=== PATIENT | female | born 1965 | race Caucasian/White ===

== ENCOUNTER 2024-12-02 16:32 | Emergency (ER) | payer MEDICAID, SELFPAY ==
--- NOTE | 2024-12-02 17:07 | EKG_ITS ---
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
[2024-12-02 17:14] VITALS: BP 135/85; PULSE 97; RESP 18; TEMP 36.7; O2SAT 95; BMI 29.9
[2024-12-02 18:10] VITALS: BP 125/86; PULSE 87; RESP 18; TEMP 36.9; O2SAT 95
[2024-12-02 18:14] VITALS: BP 101/66; PULSE 74; RESP 17; TEMP 37.1; O2SAT 98
--- NOTE | 2024-12-02 18:41 | XR_ITS ---
Examination: PA chest single view TECHNIQUE: Upright PA chest single view Exam date: December 02, 2024 at 1851 hours INDICATIONS: Chest pain 1 week. FINDINGS: Significant pneumonia left base Normal heart size Right lung clear IMPRESSION: Significant pneumonia left base
--- NOTE | 2024-12-02 18:41 | PD.EDRME ---
Rapid Medical Screening Exam RME Arrival date/time: 12/02/24 16:32 59F with history of smoking cigarettes/marijuana presents to ED with 2 weeks of increased SOB and fatigue. Today, it became more CP than SOB. Chief Complaint: Chest Pain Time Seen by Provider: 12/02/24 17:37 Vital signs: Vital Signs Temperature 98.1 F 12/02/24 17:14 Pulse Rate 97 12/02/24 17:14 Respiratory Rate 18 12/02/24 17:14 Blood Pressure 135/85 H 12/02/24 17:14 Pulse Oximetry (%) 95 12/02/24 17:14 Oxygen Delivery Method Room Air 12/02/24 17:14
[2024-12-02 19:10] LABS: Collection Type, Urine Clean Catch
[2024-12-02 19:15] LABS: Basophils # (Auto) 0.1 Thou/mm3 (0.0-0.2); Basophils % (Auto) 1 % (0-2.5); Eosinophils # (Auto) 0.1 Thou/mm3 (0.0-0.5); Eosinophils % (Auto) 1 % (0-10); Hematocrit 40.8 % (36.0-46.0); Hemoglobin 14.3 g/dL (12.0-16.0); Immature Granulocytes % (Auto) 0 % (0-0); Immature Granulocytes Auto 0.05 Thou/mm3 (0.00-0.00); Lymphocytes # (Auto) 2.2 Thou/mm3 (1.0-4.8); Lymphocytes % (Auto) 18 % (10-50); Mean Corpuscular Hemoglobin 28.8 pg (25.0-35.0); Mean Corpuscular Volume 82 fL (80-100); Monocytes # (Auto) 1.1 Thou/mm3 (0.0-0.8); Monocytes % (Auto) 9 % (0-12); Neutrophils # (Auto) 8.8 Thou/mm3 (1.8-7.7); Neutrophils % (Auto) 72 % (37-80); Nucleated Red Blood Cell % 0 /100 WBC (0); Platelet Count 233 Thou/mm3 (140-440); RDW Standard Deviation 37.3 fL (36.4-46.3); Red Blood Count 4.97 Miln/mm3 (4.00-5.20); White Blood Count 12.3 Thou/mm3 (3.6-11.0)
[2024-12-02 19:19] LABS: Bilirubin,Urine Negative (Negative); Blood,Urine 1+ (Negative); Clarity,Urine Clear (Clear/Hazy); Color,Urine Yellow (Lt Yel-Yel); Glucose, Urine Negative (Negative); Hyaline Casts,Urine < 1 /hpf (0-1); Ketones,Urine Negative (Negative); Leukocyte Esterase,Urine Negative (Negative); Nitrite,Urine Negative (Negative); PH,Urine 5.5 (5.0-7.0); Protein,Urine Trace (Neg - Trace); RBC,Urine 10 /hpf (0-3); Specific Gravity,Urine 1.033 (1.001-1.035); Squamous Epithelial Cell,Urine 2 /hpf (0-5); Urobilinogen,Urine Negative mg/dL (0.0-1.0); WBC,Urine 3 /hpf (0-5)
[2024-12-02 19:31] LABS: INR 1.1 (0.9-1.3); Partial Thromboplastin Time 27.1 Seconds (22.0-36.0); Prothrombin Time 11.5 Seconds (9.0-12.2)
[2024-12-02 19:32] LABS: B-Type Natriuretic Peptide 246 pg/mL (0-100)
[2024-12-02 19:33] LABS: Amphetamine/Methamp Scrn,U Positive (Negative); Barbiturate Screen,Urine Negative (Negative); Benzodiazepines Screen,Urine Negative (Negative); Benzoylecgonine Screen, Ur Negative (Negative); Fentanyl Screen,Urine Negative (Negative); Opiate Screen,Urine Negative (Negative); THC Screen,Urine Positive (Negative)
[2024-12-02 19:33] LABS: Alanine Aminotransferase 40 U/L (10-49); Albumin, Serum 4.4 gm/dL (3.5-5.0); Albumin/Globulin Ratio 1.5 (1.2-2.2); Alkaline Phosphatase 101 U/L (46-116); Anion Gap 9 (7-16); Aspartate Amino Transferase 34 U/L (0-34); BUN/Creatinine Ratio 10 Ratio (12-20); Bilirubin,Total 0.6 mg/dL (0.3-1.2); Blood Urea Nitrogen 9 mg/dL (9-23); Calcium 9.2 mg/dL (8.3-10.6); Calcium (Corrected) 9.2 mg/dL (8.5-10.1); Carbon Dioxide 20.2 mMol/L (20.0-31.0); Chloride 111 mMol/L (98-107); Creatinine (Component) 0.9 mg/dL (0.6-1.3); Estimated Creatinine Clearance 72.8 mL/min (>60); Glucose 118 mg/dL (74-106); Osmolality,Calculated 279 (275-295); Potassium 3.8 mMol/L (3.4-5.1); Sodium 140 mMol/L (136-145); Total Protein 7.4 gm/dL (5.7-8.2); Troponin I 0.038 ng/mL (0.0-0.045); eGFR > 60 See Note
[2024-12-02] MEDS: Aspirin 325 MG TABLET PO (20:23)
--- NOTE | 2024-12-02 21:46 | EDNOTE_ITS ---
ED Chest Pain RME/HPI General Chief Complaint: Chest Pain Stated Complaint: CHEST PAIN WITH NEAR SYNCOPE Time Seen by Provider: 12/02/24 17:37 Arrival date/time: 12/02/24 16:32 RME / HPI RME / HPI narrative: 12/02/24 16:32 59F with history of smoking cigarettes/marijuana presents to ED with 2 weeks of increased SOB and fatigue. Today, it became more CP than SOB. DR. CARPENTER MAIN ED EVALUATION: 59 y/o female with Hx of Amphetamine, Methamphetamine, and Marijuana use presents to ED c/o chest pain and shortness of breath x over 12 hours. Patient took some Ibuprofen with some relief for a pain that radiates up her neck. Denies nausea, vomiting, hematuria, cough, sick contacts or recent travel. Admits to smoking cigarettes and marijuana. Patient does not have a primary care doctor and admits to not seeing any physician in approximately 10 years. No other concerns or complaints expressed at this time. Related Data Home Medications ?Medication ?Instructions ?Recorded ?Confirmed Hydrocodone/Acetaminophen * (NORCO 1 tab PO Q6H PRN PA IN #0 tabs 06/07/14 5/325 *) Previous Rx's ?Medication ?Instructions ?Recorded amoxicillin 875 mg-potassium 1 tab PO Q12H #10 tabs clavulanate 125 mg tablet Allergies Allergy/AdvReac Type Severity Reaction Status Date / Time No Known Allergies Allergy Verified 12/02/24 16:37 Review of Systems Review of Systems Systems Reviewed: All systems reviewed, normal except as documented Past Medical History Social History SMOKING STATUS: Current every day smoker SUBSTANCE USE: marijuana, amphetamines and methamphetamine SUBSTANCE LAST USED: unknown ED Exam Narrative Physical exam: GEN. APPEARANCE: The patient is alert awake oriented X-3 in no distress, lying down comfortably, does not look ill/toxic. Patient has good eye contact. Patient is cooperative. VITALS: All vitals were reviewed and the pulse ox is 98% on room air which is normal according to my interpretation. HEENT: Normocephalic, atraumatic. Pupils are equal and reactive. Oral mucosa is moist. Patent Nares NECK: Supple, nontender, no thyromegaly, no meningismus, no JVD CHEST: Symmetrical, atraumatic, and with equal expansion , Nontender on palpation no deformity and no crepitus. CARDIOVASCULAR: Heart regular rhythm no murmur or gallop rub or extra beats. LUNGS: Clear to auscultation bilaterally with symmetrical chest rise. No laboring tachypnea or wheezing. No intercostal subcostal retraction. No rales and no rhonchi. ABDOMEN: Soft, flat, nontender to palpation, no guarding or rebound tenderness. There are no abnormal masses palpated. Active and normal bowel sounds. EXTREMITIES: Nontender. No edema. No cyanosis. Patient is able to move all 4 extremities well, with full ROM and good CSM. SKIN: Warm and dry, no jaundice or rashes noted. NEURO: Patient is MASON x 4, Cranial nerves II through XII grossly intact. There is no focal neurologic deficits noted. GCS is 15, PNS and SKIRT PANEL ASSEMBLER appear grossly intact. PSYCHIATRIC: Patient is in normal mood and affect. Course Course Course Narrative: CXR is ordered for determining the etiology of chest pain. Quality Measures none Orders Category Date Time Status EKG (ED ONLY) *Do not use* NOW Care 12/02/24 17:07 Completed EKG (ED Only) Stat Exams 12/02/24 17:07 Draft XR chest 1V portable Stat Exams 12/02/24 18:41 Completed B-Type Natriuretic Peptide Stat Lab 12/02/24 19:05 Completed CBC Stat Lab 12/02/24 19:05 Completed Comprehensive Metabolic Panel Stat Lab 12/02/24 19:05 Completed Drug Screen,Urine Stat Lab 12/02/24 19:04 Completed Magnesium Stat Lab 12/02/24 19:05 Completed Partial Thromboplastin Time Stat Lab 12/02/24 19:05 Completed Prothrombin Time with INR Stat Lab 12/02/24 19:05 Completed Troponin I Stat Lab 12/02/24 19:05 Completed Urinalysis Stat Lab 12/02/24 19:04 Completed Amoxicillin/Pot Clav 875 [Augmentin 875] Med 12/02/24 22:06 Discontinued 1 tab PO X1 ONE Aspirin Med 12/02/24 18:42 Discontinued 325 mg PO X1 ONE Vital Signs Vital signs: Vital Signs Temperature 98.1 F 12/02/24 17:14 Pulse Rate 97 12/02/24 17:14 Respiratory Rate 18 12/02/24 17:14 Blood Pressure 135/85 H 12/02/24 17:14 Pulse Oximetry (%) 95 12/02/24 17:14 Oxygen Delivery Method Room Air 12/02/24 17:14 Chest Pain MDM Narrative MDM Narrative:: Scribe Attestation: Jamia Cancino am scribing for and in the presence of Dr. Carpenter. Provider Notation: Although this document has been carefully reviewed, there may still be some phonetic and other typographical errors.? These errors are purely grammatical due to imperfections in the software program and should not be construed in any way to? compromise the substance of the patient's medical care during this visit. WBC 12.3, no left shift. No significant electrolyte abnormality. Troponin I 0.038, BNP 246. UA with some blood, but otherwise no sign of infection.l Toxicology is positive for amphetamines and marijuana. Patient refused repeat Troponin I test. Patient leaving AMA. Have not R/O life- threatening abnormalities. Patient data External records reviewed:: [facility] [place] previous records (Reviewed prior ED records from 02/25/24. Patient was seen for Dental abscess.) Clinical information provided by:: patient Social determinants that could affect healthcare access:: substance use (Amphetamine, Methamphetamine, Marijuana) Patient has the following chronic illnesses:: Recreational drug use How is presenting disease/condition affected by chronic disease/condition?: exacerbated by Evaluation data The following diagnostics were reviewed and interpreted by me:: lab results, radiology exam(s) and EKG tracing(s) (EKG done at 1710, 96 bpm, short [place] interval, QT 448 , non-specific T-wave changes, not a cardiac alert. - Interpreted by Dr. Bijal Carpenter.) Lab and/or radiology exams considered but not ordered:: None Interpretation Summary: RADIOLOGY Chest X-Ray: FINDINGS: Significant pneumonia left base Normal heart size Right lung clear IMPRESSION: Significant pneumonia left base Medications / Prescriptions Medications or Prescriptions considered but not ordered:: None Medication administrations:: Medication Administration History Discontinued Medications Amoxicillin/Clavulanate Potassium (Amoxicillin/Pot Clav 875 Tablet) 1 tab PO X1 ONE Stop: 12/02/24 22:07 Aspirin (Aspirin 325 Mg Tablet) 325 mg PO X1 ONE Stop: 12/02/24 18:43 Last Admin: 12/02/24 20:23 Dose: 325 mg Documented By: CVL See above if any Consultations Consultation(s) initiated? (list below): No Diagnosis Chest Pain Differential Diagnosis: pneumothorax, stable angina, unstable angina pectoris, atypical chest pain, st elevation myocardial infarction, costochondritis and chest pain Most likely diagnosis given after review of the tests above:: Chest Pain, Polysubstance use, Pneumonia, Methamphetamine abuse Admission Indicated Admission indicated?: not indicated Explain why admission is indicated or not indicated:: Patient left AMA. Admission Request Was there a request for admission?: No Disposition Plan Disposition Plan: other (specify) (Patient left AMA.) Discharge Plan Plan Patient Disposition: Left Against Medical Advice Prescriptions/Referrals Prescriptions/Med Rec: New amoxicillin-pot clavulanate 875-125 mg tablet 1 tab PO Q12H Qty: 10 0RF No Action Hydrocodone/Acetaminophen * (NORCO 5/325 *) 1 TAB tablet 1 tab PO Q6H PRN (Reason: PAIN) Qty: 0 Referrals: No Primary/Family,Physician [Primary Care Provider] - In 1 week Problem List Clinical Impression: Chest pain, Polysubstance use disorder, Pneumonia, Methamphetamine abuse, P olysubstance (excluding opioids) dependence Patient/Caregiver Discharge Instructions Discharge Activity: activity as tolerated Education Materials: ED Chest Pain, Uncertain Cause, ED Pneumonia (Adult) Additional Instructions: Please establish care with a primary care doctor as well as a environmental marketing representative. I also advised you on sobriety. Please take your antibiotics as prescribed. My advice is that we continue to workup today however you are choosing to leave AGAINST MEDICAL ADVICE. Important that you resume care as soon as possible. Print Language: Macedonian
== END 2024-12-02 22:10 | disposition left against medical advice (07) ==
PROVIDERS: Physician Assistant; Emergency Provider Emergency Medicine
DX: J18.9 Pneumonia, unspecified organism (principal); F19.90 Other psychoactive substance use, unspecified, uncomplicated; F15.20 Other stimulant dependence, uncomplicated; R94.31 Abnormal electrocardiogram [ECG] [EKG]; F17.210 Nicotine dependence, cigarettes, uncomplicated; Z53.29 Procedure and treatment not carried out because of patient's decision for other reasons
CPT/HCPCS: 36415; 71045; 80053; 80307; 81001; 83735; 83880; 84484; 85025; 85610; 85730; 93005; 99283; A9270

== ENCOUNTER 2024-12-03 17:14 | Emergency (ER) | payer MEDICAID, SELFPAY ==
[2024-12-03 17:16] VITALS: BP 127/79; PULSE 99; RESP 18; TEMP 37.4; O2SAT 95
[2024-12-03 17:20] VITALS: PULSE 103; RESP 25; O2SAT 96; BMI 26.6
[2024-12-03 18:15] VITALS: BP 122/82; PULSE 104; RESP 18; TEMP 36.5; O2SAT 96
--- NOTE | 2024-12-03 18:24 | PD.EDSOB ---
ED SOB =RME/HPI General Chief Complaint: Shortness of Breath/Dyspnea Stated Complaint: WEAKNESS Time Seen by Provider: 12/03/24 19:50 Arrival date/time: 12/03/24 17:14 RME / HPI RME / HPI Narrative: This section includes all my notes and documentations, including HPI, PE, and ED course. Omar Bustamante MD HPI: 59yo female SHANNON from home presents to the ED for complaints of left-sided chest pain and dyspnea and malaise and fatigue for several days. No fever or chills. No abdominal pain. No oxygen at home. No daily medications. She is a current tobacco smoker. Patient was seen here yesterday for the same complaint but she left AMA. No other complaints reported. ROS: All negative except as documented in HPI. Physical Exam: General: Lethargic. Eyes: Conjunctivae and lids clear. ENT: No nasal congestion. Neck: Supple. Heart: RRR. Lungs: No respiratory distress. Good air movement. No significant rhonchi, wheezing, rales. Chest: No tenderness. Abdomen: Soft and nontender. Normal bowel sounds. No distension. No rebound or guarding. Back: No CVA tenderness. Skin: Warm and dry. Neuro: Alert and oriented X 3. I reviewed EMS notes. I reviewed all diagnostic test results. My interpretation of the EKG is sinus rhythm. My interpretation of the chest x-ray is infiltrates. My review of the CT head report is unremarkable. My review of the CT angio chest report is saddle pulmonary embolism. My review of the CT abdomen pelvis report is no acute findings. Blood tests remarkable for WBC 13.0, ESR 66, D-Dimer > 3820, BNP 316, Troponin 0.048, CRP 15.6, and UDS positive for methamphetamine and marijuana. At this point, diagnoses include saddle pulmonary embolism. Treatment here included IV fluid, Zofran, Solu-Medrol, DuoNeb, Toradol, morphine, Zithromax, Rocephin, and heparin bolus and drip. No significant improvement noted. I discussed the case with Dr. Johnson from [facility]. About the presentation and exam and diagnostics and treatments here. And need of further care in the hospital there. Will accept the patient. Omar Bustamante MD Related Data Home Medications ?Medication ?Instructions ?Recorded ?Confirmed Hydrocodone/Acetaminophen * (NORCO 1 tab PO Q6H PRN PAIN #0 tabs 06/07/14 5/325 *) Previous Rx's ?Medication ?Instructions ?Recorded amoxicillin 875 mg-potassium 1 tab PO Q12H #10 tabs 12/02/24 clavulanate 125 mg tablet Allergies Allergy/AdvReac Type Severity Reaction Status Date / Time No Known Allergies Allergy Verified 12/02/24 16:37 Review of Systems Review of Systems Systems Reviewed: All systems reviewed, normal except as documented Past Medical History Social History SMOKING STATUS: Current every day smoker SUBSTANCE USE: marijuana, amphetamines and methamphetamine ED Exam Narrative Physical exam: As noted in HPI. Course Course Course Narrative: CXR is ordered for determining the etiology of chest pain. Quality Measures none Orders Category Date Time Status Bedside COVID-19 Antigen Test NOW Care 12/03/24 18:41 Active Bedside Influenza A&B Antigen Test NOW Care 12/03/24 18:[address] Screening NOW Care 12/03/24 18:43 Active EKG (ED ONLY) *Do not use* NOW Care 12/03/24 18:42 Completed Saline [Insert IV] NOW Care 12/03/24 18:41 Active Transfer to another facility [Transfer/Discharge] Stat Discharge 12/04/24 01:[address] abdomen pelvis w con Stat Exams 12/03/24 18:[address] angio chest Stat Exams 12/03/24 18:[address] head/brain wo con Stat Exams 12/03/24 18:43 Completed EKG (ED Only) Stat Exams 12/03/24 18:42 Draft XR chest 1V portable Stat Exams 12/03/24 18:42 Completed ABG [Arterial Blood Gas] Stat Lab 12/03/24 18:46 Ordered Alcohol, Blood Medical Stat Lab 12/03/24 19:16 Completed Ammonia Stat Lab 12/03/24 19:10 Completed BNP [B-Type Natriuretic Peptide] Stat Lab 12/03/24 19:10 Completed Beta Hydroxybutyrate Stat Lab 12/03/24 19:16 Completed Bilirubin,Direct Stat Lab 12/03/24 19:16 Completed Blood Culture (Lab) Stat Lab 12/03/24 19:10 Received CBC Stat Lab 12/03/24 19:10 Completed CMP [Comprehensive Metabolic Panel] Stat Lab 12/03/24 19:16 Completed CRP [C-Reactive Protein] Stat Lab 12/03/24 19:16 Completed D-Dimer Stat Lab 12/03/24 19:16 Completed Drug Screen,Urine Stat Lab 12/03/24 19:42 Completed ESR [Sed Rate (ESR)] Stat Lab 12/03/24 19:10 Completed Free T4 (Free Thyroxine) Stat Lab 12/03/24 19:16 Completed Lactate (Lactic Acid) Stat Lab 12/03/24 19:10 Completed Magnesium Stat Lab 12/03/24 19:16 Completed PT [Prothrombin Time with INR] Stat Lab 12/03/24 19:10 Completed PTT [Partial Thromboplastin Time] Q6H Lab 12/04/24 05:56 Ordered PTT [Partial Thromboplastin Time] Q6H Lab 12/04/24 11:56 Ordered PTT [Partial Thromboplastin Time] Q6H Lab 12/04/24 17:56 Ordered PTT [Partial Thromboplastin Time] Stat Lab 12/03/24 19:10 Completed Procalcitonin Stat Lab 12/03/24 19:16 Completed TSH [Thyroid Stimulating Hormone] Stat Lab 12/03/24 19:16 Completed Troponin I Stat Lab 12/03/24 19:16 Completed Troponin I Stat Lab 12/04/24 01:30 Completed UA, C/S IF [Urinalysis, C/S if Indicated] Stat Lab 12/03/24 19:42 Completed Albuterol/Ipratr Rt Radha [Duoneb Rt Radha] Med 12/03/24 18:47 Discontinued 3 ml INH X1 ONE Azithromycin Inj [Zithromax Inj] 500 mg Med 12/03/24 20:58 Discontinued Sodium Chloride 0.9% 250 ml [Ns] 250 ml IV X1 Heparin 1000 UNIT/ML-1 ML [Heparin 1000 Unit/ml-1 ml] Med 12/03/24 21:20 Discontinued 1,000 unit IV X1 ONE Heparin 1000 UNIT/ML-1 ML [Heparin 1000 Unit/ml-1 ml] Med 12/03/24 21:20 Discontinued 5,000 unit IV X1 ONE Heparin Inj Med 12/03/24 22:30 Discontinued 5,000 unit .ROUTE .STK-MED ONE Heparin Inj Med 12/03/24 23:00 Discontinued 5,000 unit IV X1 ONE Heparin/D5w 25K 250 ML Ivpb [Heparin in D5w Ivpb] Med 12/03/24 21:30 Active 25,000 unit in 250 ml IV 18 units/kg/hr Ketorolac Inj [Toradol Inj] Med 12/04/24 02:01 Discontinued 30 mg IVP X1 ONE MethylPREDNISolone.* [SoluMEDROL Inj] Med 12/03/24 18:47 Discontinued 125 mg IVP X1 ONE Morphine Inj Med 12/04/24 02:01 Discontinued 4 mg IVP X1 ONE Ondansetron Inj [Zofran Inj] Med 12/03/24 18:42 Discontinued 4 mg IVP X1 ONE Sodium Chloride 0.9% 1000 ml [Ns] 1,000 ml Med 12/03/24 18:42 Discontinued IV 999 mls/hr cefTRIAXone/D5w 1gm IV premix [Rocephin/D5w 1gm IV Med 12/03/24 20:58 Discontinued premix] 1 gm in 50 ml IV X1 Vital Signs Vital signs: Vital Signs Temperature 99.4 F 12/03/24 17:16 Pulse Rate 99 12/03/24 17:16 Respiratory Rate 18 12/03/24 17:16 Blood Pressure 127/79 12/03/24 17:16 Pulse Oximetry (%) 95 12/03/24 17:16 Oxygen Delivery Method Room Air 12/03/24 17:16 Shortness of Breath / Dyspnea MDM Narrative MDM Narrative:: 59yo female SHANNON from home presents to the ED for complaints of left-sided chest pain and dyspnea and malaise and fatigue for several days. No fever or chills. No abdominal pain. No oxygen at home. No daily medications. She is a current tobacco smoker. Patient was seen here yesterday for the same complaint but she left AMA. No other complaints reported. Patient data External records reviewed:: [facility] previous records (Per chart review, patient was seen here last night for chest pain.) and EMS form Clinical information provided by:: patient Social determinants that could affect healthcare access:: substance use (current smoker) Patient has the following chronic illnesses:: none How is presenting disease/condition affected by chronic disease/condition?: no chronic disease Evaluation data The following diagnostics were reviewed and interpreted by me:: lab results, radiology exam(s) and EKG tracing(s) Lab and/or radiology exams considered but not ordered:: none Interpretation Summary: I reviewed all diagnostic test results. My interpretation of the EKG is sinus rhythm. My interpretation of the chest x-ray is infiltrates. My review of the CT head report is unremarkable. My review of the CT angio chest report is saddle pulmonary embolism. My review of the CT abdomen pelvis report is no acute findings. Blood tests remarkable for WBC 13.0, ESR 66, D-Dimer > 3820, BNP 316, Troponin 0.048, CRP 15.6, and UDS positive for methamphetamine and marijuana. Medications / Prescriptions Medications or Prescriptions considered but not ordered:: none Medication administrations:: Medication Administration History Heparin Sodium/Dextrose (Heparin In D5w Ivpb) 25,000 unit in 250 mls @ 14.337 mls/hr IV .[id number] [facility]; Protocol Stop: 12/17/24 21:29 Last Admin: 12/03/24 22:56 Dose: 18 units/kg/hr, 14.337 mls/hr Documented By: EF Co-signed By: LG Discontinued Medications Albuterol/Ipratropium (Albuterol/Ipratropium (Duoneb) Rt Radha 3 Ml Nebu) 3 ml INH X1 ONE Stop: 12/03/24 18:48 Last Admin: 12/03/24 21:31 Dose: 3 ml Documented By: JOSE GUADALUPE Heparin Sodium (Porcine) (Heparin Sod Inj 1000 Unit/Ml Vial) 1,000 unit IV X1 ONE Stop: 12/03/24 21:21 Last Admin: 12/03/24 22:58 Dose: Not Given Documented By: EF Non-Admin Reason: Cancelled by Provider Heparin Sodium (Porcine) (Heparin Sod Inj 1000 Unit/Ml Vial) 5,000 unit IV X1 ONE Stop: 12/03/24 21:21 Last Admin: 12/03/24 22:55 Dose: Not Given Documented By: EF Non-Admin Reason: Cancelled by Provider Heparin Sodium (Porcine) (Heparin Sod Inj 5000 Unit/Ml Vial) Confirm Administered Dose 5,000 unit .ROUTE .STK-MED ONE Stop: 12/03/24 22:31 Last Admin: 12/03/24 22:55 Dose: Not Given Documented By: EF Non-Admin Reason: Override Medication Heparin Sodium (Porcine) (Heparin Sod Inj 5000 Unit/Ml Vial) 5,000 unit IV X1 ONE Stop: 12/03/24 23:01 Last Admin: 12/03/24 22:56 Dose: 5,000 unit Documented By: EF Co-signed By: LG Sodium Chloride (Ns) 1,000 mls @ 999 mls/hr IV .Q1H1M ONE Stop: 12/03/24 19:42 Last Infusion: 12/04/24 00:33 Dose: Infused Documented By: Admin: 12/03/24 22:41 Dose: 999 mls/hr Documented By: EF Azithromycin 500 mg/ Sodium (Chloride) 250 mls @ 250 mls/hr IV X1 ONE Stop: 12/03/24 21:57 Last Infusion: 12/04/24 00:33 Dose: Infused Documented By: Admin: 12/03/24 23:24 Dose: 250 mls/hr Documented By: EF Ceftriaxone Sodium/Dextrose (Rocephin/D5w 1gm Iv Premix) 1 gm in 50 mls @ 100 mls/hr IV X1 ONE Stop: 12/03/24 21:27 Last Infusion: 12/03/24 23:12 Dose: Infused Documented By: Admin: 12/03/24 22:42 Dose: 100 mls/hr Documented By: EF Ketorolac Tromethamine (Ketorolac Inj 30 Mg/Ml Vial) 30 mg IVP X1 ONE Stop: 12/04/24 02:02 Last Admin: 12/04/24 02:15 Dose: 30 mg Documented By: DT Methylprednisolone Sodium Succinate (Methylprednisolone Sod Succ 62.5 Mg/Ml 2ml Vial) 125 mg IVP X1 ONE Stop: 12/03/24 18:48 Last Admin: 12/03/24 22:41 Dose: 125 mg Documented By: EF Morphine Sulfate (Morphine Sulf Inj 10 Mg/Ml Vial) 4 mg IVP X1 ONE Stop: 12/04/24 02:02 Last Admin: 12/04/24 02:17 Dose: 4 mg Documented By: DT Ondansetron HCl (Ondansetron Inj 2 Mg/Ml Inj 2 Ml) 4 mg IVP X1 ONE; Protocol Stop: 12/03/24 18:43 Last Admin: 12/03/24 22:41 Dose: 4 mg Documented By: EF Treatment here included IV fluid, Zofran, Solu-Medrol, DuoNeb, Toradol, morphine, Zithromax, Rocephin, and heparin bolus and drip. Consultations Consultation(s) initiated? (list below): Yes Consultation #1 (Physician, Specialty, Details): I discussed the case with Dr. Johnson from [facility]. About the presentation and exam and diagnostics and treatments here. And need of further care in the hospital there. Will accept the patient. Diagnosis Shortness of Breath Differential Diagnosis: acute exacerbation of chronic obstructive airways disease, congestive heart failure, community acquired pneumonia, asthma with exacerbation and pulmonary embolism Most likely diagnosis given after review of the tests above:: Saddle pulmonary embolism. Admission Indicated Admission indicated?: not indicated Explain why admission is indicated or not indicated:: No interventional radiologist or primer waterproofing machine adjuster for saddle pulmonary embolism. Admission Request Was there a request for admission?: No Disposition Plan Disposition Plan: Transfer Critical Care Time Critical Care Time Critical Care Time: Yes Total Critical Care Time (min.): 45 Attestation: Due to a high probability of clinically significant, life threatening deterioration, the patient required my highest level of preparedness to intervene emergently and I personally spent this critical care time directly and personally managing the patient. This critical care time included obtaining a history; examining the patient; ordering and review of studies; arranging urgent treatment with development of a management plan; evaluation of patient's response to treatment; frequent reassessment; and discussions with family and other providers. It was exclusive of separately billable procedures and treating other patients and teaching time. Omar Bustamante MD Discharge Plan Plan Patient Disposition: [facility] Being Transferred to: [facility] Service Needed for Transfer: Interventional Radiology Prescriptions/Referrals Prescriptions/Med Rec: No Action Hydrocodone/Acetaminophen * (NORCO 5/325 *) 1 TAB tablet 1 tab PO Q6H PRN (Reason: PAIN) Qty: 0 amoxicillin-pot clavulanate 875-125 mg tablet 1 tab PO Q12H Qty: 10 0RF Referrals: No Primary/Family,Physician [Primary Care Provider] - In 1 week Problem List Clinical Impression: Acute saddle pulmonary embolism Patient/Caregiver Discharge Instructions Print Language: Belgian Stand Alone Forms: [employer] Info., Patient Portal Info Letter
--- NOTE | 2024-12-03 18:42 | EKG_ITS ---
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
--- NOTE | 2024-12-03 18:42 | XR_ITS ---
Examination: PA chest single view TECHNIQUE: Upright PA chest single view Date and time: December 03, 2024 1926 hours Comparison December 02, 2024 INDICATION: Chest pain and shortness of breath today FINDINGS: Significant pneumonia left base remains Normal heart size Right lung clear IMPRESSION: Significant pneumonia left base remains
--- NOTE | 2024-12-03 18:43 | XR_ITS ---
Examination: CT brain head without contrast. 2-D sagittal coronal reconstructions Date and time of exam:December 03, 2024 at 2032 hours INDICATIONS: Altered mental status beginning one week ago CTDI: vol (mGy):50 DLP: (mGycm):972 Technique: Multiple CT axial sections of the brain have been obtained, 5 mm slice thickness. Contrast has not been administered. 2-D sagittal, coronal reconstructions have been obtained Low dose protocols were performed. One or more of the following dose reduction techniques were used; automated exposure control, adjustment of the mA and/or KV according to patient size, use of iterative reconstruction technique. Findings: No significant ventricular enlargement. Intra-axial or extra-axial hemorrhage density is not seen. No mass effect or midline shift Basal cisterns are not remarkable. Fourth ventricle is midline. Cranial vault intact. Impression: Negative for acute hemorrhage, mass effect or midline shift
--- NOTE | 2024-12-03 18:43 | XR_ITS ---
Examination: CTA chest with intravenous contrast 2-D reconstructions 3-D reconstructions, vascular Date and time of exam: December 03, 20242031 hours INDICATIONS: Onset chest pain and shortness of breath today CTDI: vol (mGy) 13 DLP: (mGycm) ordered 84 Technique: Multiple axial sections of the thorax have been obtained. 3 mm slice thickness, from below the hemidiaphragms to above the apices of the lungs. Mediastinal and lung density settings have been obtained. 2-D sagittal and coronal reconstructions. 3-D angiographic renderings, 3-D volume renderings, 3D post processing, vascular maximum intensity projections obtained. Contrast administered is 100 cc Isovue-370. Low dose protocols were performed. One or more of the following dose reduction techniques were used; automated exposure control, adjustment of the mA and/or KV according to patient size, use of iterative reconstruction technique. Findings: Positive for large bilateral pulmonary artery emboli including saddle emboli in the main right and left main pulmonary artery as well as multiple emboli in the upper and lower lobe pulmonary artery branches Pneumonia versus infarction of the left base with small left pleural effusion No pulmonary edema IMPRESSION: Positive for large bilateral pulmonary artery emboli including saddle emboli in the main right and left pulmonary artery branches and multiple emboli in the upper and lower lobe pulmonary artery branches
--- NOTE | 2024-12-03 18:43 | XR_ITS ---
Examination: CT abdomen with intravenous contrast CT pelvis with intravenous contrast 2-D coronal reconstructions 2-D sagittal reconstructions Date and time of exam:December 03, 20242031 hours INDICATIONS: Left flank pain today. CTDI: vol (mGy) 18 DLP: (mGycm) 966 Technique: Multiple axial sections of the abdomen and pelvis have been obtained. 64 slice high-resolution scanner used. 3 mm axial sections have been obtained, post intravenous injection 60 cc Isovue-370 2-D sagittal, coronal reconstructions obtained. Low dose protocols were performed. One or more of the following dose reduction techniques were used; automated exposure control, adjustment of the mA and/or KV according to patient size, use of iterative reconstruction technique. Findings: Significant pneumonia left base with small left pleural effusion No focal liver or splenic lesions No gallstones No pancreatic or adrenal mass No renal or ureteral calculi, no hydronephrosis Abdominal aortic calcification Normal appendix No bowel obstruction No diverticulitis Atrophic uterus Contracted urinary bladder, no bladder mass or bladder calculi Prominent osteopenia IMPRESSION: Significant pneumonia left base with small left pleural effusion No renal or ureteral calculi, no hydronephrosis Normal appendix No bowel obstruction or diverticulitis No bladder mass or bladder calculi
[2024-12-03 19:22] LABS: Lactate (Lactic Acid) 1.3 mMol/L (0.4-2.0)
[2024-12-03 19:25] LABS: Basophils % (Auto) 0 % (0-2.5); Eosinophils # (Auto) 0.1 Thou/mm3 (0.0-0.5); Eosinophils % (Auto) 0 % (0-10); Hematocrit 41.7 % (36.0-46.0); Hemoglobin 14.8 g/dL (12.0-16.0); Immature Granulocytes % (Auto) 0 % (0-0); Immature Granulocytes Auto 0.05 Thou/mm3 (0.00-0.00); Lymphocytes # (Auto) 1.7 Thou/mm3 (1.0-4.8); Lymphocytes % (Auto) 13 % (10-50); Mean Corpuscular HGB Conc 35.5 g/dl (31.0-37.0); Mean Corpuscular Hemoglobin 29.4 pg (25.0-35.0); Mean Corpuscular Volume 83 fL (80-100); Monocytes # (Auto) 1.2 Thou/mm3 (0.0-0.8); Monocytes % (Auto) 9 % (0-12); Neutrophils % (Auto) 77 % (37-80); Nucleated Red Blood Cell % 0 /100 WBC (0); Platelet Count 258 Thou/mm3 (140-440); RDW Standard Deviation 37.9 fL (36.4-46.3); Red Blood Count 5.04 Miln/mm3 (4.00-5.20)
[2024-12-03 19:27] LABS: Beta Hydroxybutyrate 0.3 mmol/L (<0.6)
[2024-12-03 19:33] LABS: Sed Rate (ESR) 66 mm/hr (0-30)
[2024-12-03 19:44] LABS: B-Type Natriuretic Peptide 316 pg/mL (0-100); INR 1.1 (0.9-1.3); Partial Thromboplastin Time 27.5 Seconds (22.0-36.0); Prothrombin Time 12.1 Seconds (9.0-12.2)
[2024-12-03 19:46] LABS: Ammonia < 10 uMol/L (11-32)
[2024-12-03 19:47] LABS: Collection Type, Urine Clean Catch
[2024-12-03 19:48] LABS: D-Dimer > 3820 ng/mL (<600)
[2024-12-03 19:58] LABS: Bilirubin,Urine 1+ (Negative); Blood,Urine 2+ (Negative); Clarity,Urine Turbid (Clear/Hazy); Color,Urine Yellow (Lt Yel-Yel); Culture Indicated,Urine Not Indicated; Glucose, Urine Negative (Negative); Ketones,Urine Negative (Negative); Leukocyte Esterase,Urine Negative (Negative); Nitrite,Urine Negative (Negative); PH,Urine 5.5 (5.0-7.0); Protein,Urine Trace (Neg - Trace); RBC,Urine 19 /hpf (0-3); Specific Gravity,Urine 1.021 (1.001-1.035); Squamous Epithelial Cell,Urine 20 /hpf (0-5); WBC,Urine 4 /hpf (0-5)
[2024-12-03 20:00] LABS: Alanine Aminotransferase 29 U/L (10-49); Albumin, Serum 4.3 gm/dL (3.5-5.0); Albumin/Globulin Ratio 1.3 (1.2-2.2); Alcohol, Blood Medical < 3.0 mg/dL (0-10.0); Alkaline Phosphatase 110 U/L (46-116); Anion Gap 10 (7-16); Aspartate Amino Transferase 20 U/L (0-34); BUN/Creatinine Ratio 9 Ratio (12-20); Bilirubin,Direct 0.3 mg/dL (0.0-0.3); Bilirubin,Total 0.8 mg/dL (0.3-1.2); Blood Urea Nitrogen 9 mg/dL (9-23); C-Reactive Protein 15.6 mg/dL (0.0-0.9); Calcium 9.6 mg/dL (8.3-10.6); Calcium (Corrected) 9.6 mg/dL (8.5-10.1); Carbon Dioxide 21.3 mMol/L (20.0-31.0); Chloride 109 mMol/L (98-107); Estimated Creatinine Clearance 66.4 mL/min (>60); Globulin 3.2 gm/dL (2.3-3.5); Glucose 143 mg/dL (74-106); Magnesium 2.3 mg/dL (1.6-2.6); Osmolality,Calculated 280 (275-295); Potassium 3.7 mMol/L (3.4-5.1); Procalcitonin 0.15 ng/ml (0.0-0.49); Sodium 140 mMol/L (136-145); Total Protein 7.5 gm/dL (5.7-8.2); eGFR > 60 See Note
[2024-12-03 20:01] LABS: Amphetamine/Methamp Scrn,U Positive (Negative); Barbiturate Screen,Urine Negative (Negative); Benzodiazepines Screen,Urine Negative (Negative); Benzoylecgonine Screen, Ur Negative (Negative); Fentanyl Screen,Urine Negative (Negative); Opiate Screen,Urine Negative (Negative); THC Screen,Urine Positive (Negative)
[2024-12-03 20:02] LABS: Troponin I 0.048 ng/mL (0.0-0.045)
[2024-12-03] MEDS: ALBUTEROL/IPRATROPIUM (Duoneb) RT SOL 3 ML NEBU INH (21:31)
[2024-12-03 21:32] VITALS: PULSE 99; RESP 20; O2SAT 100
--- NOTE | 2024-12-03 22:37 | PC.NURSE ---
CALLED HOUSE SUPP FOR HEPARIN
[2024-12-03] MEDS: SODIUM CHLORIDE 0.9% 1000 ML 1,000 ML 999 ML IV (22:41)
[2024-12-03] MEDS: MethylPREDNISolone SOD SUCC 62.5 MG/ML 2ML VIAL 125 MG IVP (22:41)
[2024-12-03] MEDS: ONDANSETRON INJ 2 MG/ML INJ 2 ML 4 MG IVP (22:41)
[2024-12-03] MEDS: cefTRIAXone/D5w 1gm IV premix 1 GM/50 ML BAG IV (22:42)
[2024-12-03 22:50] VITALS: BP 147/86; PULSE 95; RESP 22; TEMP 36.4; O2SAT 100
[2024-12-03] MEDS: Heparin/D5w 25K 250 ML Ivpb 25,000 UNIT/250 ML BAG 14.337 UNIT IV (22:56)
[2024-12-03] MEDS: HEPARIN SOD INJ 5000 UNIT/ML VIAL IV (22:56)
[2024-12-03 23:12] VITALS: BP 128/82; PULSE 95; RESP 20; TEMP 37.5; O2SAT 96
[2024-12-03] MEDS: AZITHROMYCIN INJ 500 MG in SODIUM CHLORIDE 0.9% 250 ML 250 ML 250 MG IV (23:24)
--- NOTE | 2024-12-04 00:02 | PC.NURSE ---
JULISSA FROM [facility] CALLED AND DECLINED THE PT AT THIS TIME. THEY DO NOT HAVE IR AT THIS TIME OF NIGHT.
--- NOTE | 2024-12-04 01:51 | PC.NURSE ---
GE FROM THE [facility] CALLED AND STATED THEY WILL NOT HAVE A BED AVAILABLE TILL AFTER 0800 OM 12/04/2024
[2024-12-04] MEDS: KETOROLAC INJ 30 MG/ML VIAL IVP (02:15)
[2024-12-04] MEDS: MORPHINE SULF INJ 10 MG/ML VIAL 4 MG IVP (02:17)
[2024-12-04 03:02] VITALS: BP 117/77; PULSE 94; RESP 19; TEMP 37.3; O2SAT 96
--- NOTE | 2024-12-04 03:12 | PC.NURSE ---
[address] DURAN AND DR SINGLETON WITH [facility]UREN M WE ARE NOW AWAITING A BED.
--- NOTE | 2024-12-04 03:17 | PC.NURSE ---
[facility] CONTACTED [facility]ENT[facility]KT SENT, DR WIN SPOKE WITH TRANSFER NURSE.
--- NOTE | 2024-12-04 03:18 | PC.NURSE ---
[address]10 [facility] RETURNED CALL DCLINED PT AT THIS TIME BY DR LIN.
--- NOTE | 2024-12-04 03:33 | PC.NURSE ---
THIS PT IS ACCEPTED TO [facility] BY DR. ULLOA. THIS IS A ER:ER TRANSFER AND NUMBER FOR REPORT [id number] [phone]. SHABBIR WAS THE FACILITY REP I SPOKE WITH FOR ACCEPTING INFORMATION.
--- NOTE | 2024-12-04 03:51 | PC.NURSE ---
CHIDI FROM [facility] CALLED AND THIS PT IS ACCEPTED BY [place] [id number] FOR TRANSPORT WITH A ETA OF 0420.
== END 2024-12-04 04:34 | disposition short-term general hospital (02) ==
PROVIDERS: Emergency Provider Emergency Medicine
DX: I26.92 Saddle embolus of pulmonary artery without acute cor pulmonale (principal); R00.0 Tachycardia, unspecified; Z75.1 Person awaiting admission to adequate facility elsewhere
CPT/HCPCS: 36415; 36600; 70450; 71045; 71275; 74177; 80053; 80307; 80320; 81001; 82010; 82140; 82248; 82803; 83605; 83735; 83880; 84145; 84439; 84443; 84484; 85025; 85379; 85610; 85652; 85730; 86140; 87040; 93005; 94640; 96365; 96367; 96375; 99285; A4649; A9270; J0456; J0696; J1644; J1885; J2270; J2405; J2919; J7030; J7050; Q9967; G0480

== ENCOUNTER 2024-12-09 10:23 | Emergency (ER) | payer MEDICAID, SELFPAY ==
[2024-12-09 10:30] VITALS: BP 152/89; PULSE 106; RESP 18; TEMP 37.7; O2SAT 96; BMI 24.9
--- NOTE | 2024-12-09 10:49 | PD.EDEPIST ---
ED Epistaxis RME/HPI General Chief complaint: Epistaxis/Nasal Foreign Body Stated complaint: Blood clots this morning out of her nose Time Seen by Provider: 12/09/24 10:26 Arrival date/time: 12/09/24 10:23 Limitations: no limitations RME / HPI RME / HPI Narrative: 59-year-old female with past medical history of recent saddle pulmonary embolism presents for evaluation of epistaxis x 1 episode. Patient reports blowing her nose this morning and having 2 small blood clots dislodge. Patient denies recurrent bleeding, syncope, dyspnea, chest pain facial pain, fever. Patient is currently on Eliquis as she has known residual clots. Patient had pulmonary emboli removed at [facility] x 4 days ago. Related Data Home Medications ?Medication ?Instructions ?Recorded ?Confirmed Hydrocodone/Acetaminophen * (NORCO 1 tab PO Q6H PRN PAIN #0 tabs 06/07/14 5/325 *) Previous Rx's ?Medication ?Instructions ?Recorded amoxicillin 875 mg-potassium 1 tab PO Q12H #10 tabs 12/02/24 clavulanate 125 mg tablet Allergies Allergy/AdvReac Type Severity Reaction Status Date / Time No Known Allergies Allergy Verified 12/09/24 10:28 Review of Systems Constitutional Constitutional: Denies body ache(s), Denies chills, Denies fever(s) and Denies headache(s) Eyes Eyes: Denies blurry vision and Denies change in vision ENT Ears, Nose, Mouth, and Throat: Denies dizziness, Denies ear discharge, Reports epistaxis, Denies facial pain, Denies headache(s), Denies nasal discharge, Denies nasal trauma, Denies neck pain, Denies sore throat and Denies vertigo Cardiovascular Cardiovascular: Denies chest pain, Denies dyspnea, Denies irregular heart rhythm, Denies leg edema and Denies palpitations Respiratory Respiratory: Denies cough, Denies dyspnea, Denies hemoptysis and Denies wheezing Gastrointestinal Gastrointestinal: Denies abdominal pain and Denies vomiting Musculoskeletal Musculoskeletal: Denies back pain and Denies neck pain Integumentary/Breasts Skin/Breast: Denies rash and Denies wounds Neurologic Neurologic: Denies dizziness, Denies headache(s) and Denies vertigo Endocrine Endocrine: Denies palpitations Allergic/Immunologic Allergic/Immunologic: Denies wheezing Past Medical History Past Medical History CARDIAC: Negative Cardiac Disorders or Congestive Heart Failure RESPIRATORY: Negative Chronic Obstructive Pulmonary Disease (COPD) or Asthma GENITOURINARY: Negative Renal Disease ENDOCRINE: Negative Diabetes Mellitus Type 1 or Diabetes Mellitus Type 2 HEMATOLOGIC: Negative Sickle Cell Disease Social History SMOKING STATUS: Current every day smoker SUBSTANCE USE: marijuana, amphetamines and methamphetamine ED Exam General Limitations: Present no limitations General appearance: Present alert and in no apparent distress Head Head exam: Present atraumatic and normocephalic Eye Eye exam: Present normal appearance, PERRL and EOMI ENT ENT exam: Present normal oropharynx, mucous membranes moist and TM's normal bilaterally Expanded ENT Exam Nasal speculum exam: Bilateral: normal Throat exam: Present normal inspection Neck Neck exam: Present normal inspection and full ROM; Absent tenderness Chest Chest inspection: Present normal inspection and symmetric chest wall rise Respiratory Respiratory exam: Present normal lung sounds bilaterally; Absent respiratory distress Cardiovascular Cardiovascular exam: Present regular rate and +S1 Abdominal Exam Abdominal exam: Present soft; Absent distention Extremities Exam Extremities exam: Present normal inspection and full ROM Back Exam Back exam: Present normal inspection and full ROM Neurological Exam Neurological exam: Present alert Psychiatric Psychiatric exam: Present normal affect Skin Skin exam: Present warm, dry and normal color; Absent pallor Course Quality Measures none Orders Category Date Time Status PT [Prothrombin Time with INR] Stat Lab 12/09/24 10:54 Completed PTT [Partial Thromboplastin Time] Stat Lab 12/09/24 10:54 Completed Vital Signs Vital signs: Vital Signs Temperature 99.9 F 12/09/24 10:30 Pulse Rate 106 H 12/09/24 10:30 Respiratory Rate 18 12/09/24 10:30 Blood Pressure 152/89 H 12/09/24 10:30 Pulse Oximetry (%) 96 12/09/24 10:30 Oxygen Delivery Method Room Air 12/09/24 10:30 Pulse ox 96% on room air, within normal limits. Epistaxis MDM Narrative MDM Narrative:: Patient eloped from the emergency department during evaluation and treatment. 59-year-old female with recent saddle pulmonary embolism on blood thinner presented for x 1 episode of blood clots from nose. Patient mildly tachycardic, otherwise vital signs reassuring. No evidence of laceration or active bleed on intranasal speculum exam, however given the patient is on blood thinners coags were ordered. Labs significant for prolonged PTT, however unfortunately the patient eloped from the emergency department prior to these labs being resulted. Patient reported that she had a primary care appointment at noon, for which she and her niece left the emergency department prior to results. Nursing staff did call the patient and advised her of her results. Patient data External records reviewed:: [facility] previous records Clinical information provided by:: patient and family Social determinants that could affect healthcare access:: none Patient has the following chronic illnesses:: Recent saddle embolism on blood thinners. How is presenting disease/condition affected by chronic disease/condition?: exacerbated by Evaluation data The following diagnostics were reviewed and interpreted by me:: lab results and other (specify) Lab and/or radiology exams considered but not ordered:: Coags ordered. Interpretation Summary: Prolonged PT. Medications / Prescriptions Medications or Prescriptions considered but not ordered:: Considered not ordered. Medication administrations:: Considered not ordered. Consultations Consultation(s) initiated? (list below): No Diagnosis Epistaxis Differential Diagnosis: anterior epistaxis, posterior epistaxis and other (Complication on blood thinner.) Most likely diagnosis given after review of the tests above:: Eloped from the emergency department, prolonged PT. Admission Indicated Admission indicated?: not indicated Admission Request Was there a request for admission?: No Disposition Plan Disposition Plan: Discharge Discharge Attestation Discharge Attestation: The patient and all family members were given an opportunity to ask questions and understood the discharge instructions. Discharge instructions specifically effects, indications for sooner follow up or return to the emergency department, and the expected course of current diagnosis. Patient condition: Stable Discharge Plan Plan Patient Disposition: HOME (Self Care) Discharge Disposition comment: stable Prescriptions/Referrals Prescriptions/Med Rec: No Action Hydrocodone/Acetaminophen * (NORCO 5/325 *) 1 TAB tablet 1 tab PO Q6H PRN (Reason: PAIN) Qty: 0 amoxicillin-pot clavulanate 875-125 mg tablet 1 tab PO Q12H Qty: 10 0RF Referrals: Chao Crews MD [Primary Care Provider] - In 1 week Problem List Clinical Impression: PT prolonged, Epistaxis, Eloped from emergency department Impression comment: Follow-up with primary care as planned today. Return to the ED if you develop nosebleed that does not stop. Continue to take your blood Eliquis as prescribed. Return to the ED if your symptoms worsen or change. Patient/Caregiver Discharge Instructions Education Materials: First Aid: Bleeding Print Language: Fijian Stand Alone Forms: Anjelica Award Info., Patient Portal Info Letter PA/GLASS VIAL FILLER Supervising Physician PA/GLASS VIAL FILLER Supervising Physician: Dr. Tarango
[2024-12-09 11:27] LABS: INR 1.1 (0.9-1.3); Partial Thromboplastin Time 29.6 Seconds (22.0-36.0); Prothrombin Time 12.4 Seconds (9.0-12.2)
== END 2024-12-09 11:39 | disposition home or self-care (01) ==
PROVIDERS: Physician Assistant; Emergency Provider Emergency Medicine; PCP Family Medicine
DX: R04.0 Epistaxis (principal); R79.1 Abnormal coagulation profile
CPT/HCPCS: 36415; 85610; 85730; 99283

== ENCOUNTER 2024-12-27 21:04 | Emergency (ER) | payer MEDICAID, SELFPAY ==
[2024-12-27 21:05] VITALS: BMI 27.3
--- NOTE | 2024-12-27 22:09 | XR_ITS ---
Examination: Hand, right Technique: Hand AP, oblique, lateral 3 views Date and time of exam: December 27, 2024 2217 hours INDICATIONS: Injured hand today, hand pain FINDINGS: No acute fracture. No dislocation No foreign body IMPRESSION:. No acute fracture
[2024-12-27 22:14] VITALS: BP 158/90; PULSE 89; RESP 18; TEMP 36.8; O2SAT 97
[2024-12-27 23:02] VITALS: BP 132/83; PULSE 97; RESP 20; TEMP 36.9; O2SAT 98
--- NOTE | 2024-12-28 00:20 | PD.EDWOUND ---
ED Wound/Laceration-RME/HPI General Chief Complaint: Hand/Wrist Problems Stated Complaint: HAND INJUR FINGER LACERATIONS Time Seen by Provider: 12/27/24 21:24 Arrival date/time: 12/27/24 21:04 The case of 59-year-old female with history of DVT on on Eliquis came in in the emergency room due to superficial laceration on the second third fourth finger distal third patient states that it was bleeding and apply a pressure dressing prior to arrival in the emergency room patient denies any other injury denies any numbness weakness or tingling sensation patient was cleaning the cooler of the electric fan when the finger hit by the fan and sustained the above injury patient tetanus shot is up-to-date Limitations: no limitations Related Data Home Medications ?Medication ?Instructions ?Recorded ?Confirmed Hydrocodone/Acetaminophen * (NORCO 1 tab PO Q6H PRN PAIN #0 tabs 06/07/14 5/325 *) Previous Rx's ?Medication ?Instructions ?Recorded amoxicillin 875 mg-potassium 1 tab PO Q12H #10 tabs 12/02/24 clavulanate 125 mg tablet cephalexin 500 mg capsule 500 mg PO TID 10 days #30 caps 12/28/24 ibuprofen 600 mg tablet 600 mg PO Q8H PRN pain #20 tabs 12/28/24 mupirocin 2 % topical ointment 1 applic topical TID #22 grams 12/28/24 Allergies Allergy/AdvReac Type Severity Reaction Status Date / Time No Known Allergies Allergy Verified 12/27/24 21:09 Review of Systems Review of Systems Systems Reviewed: All systems reviewed, normal except as documented Constitutional Constitutional: Reports system reviewed and no additional complaints, except as documented, Reports as per HPI, Denies chills and Denies fever(s) Cardiovascular Cardiovascular: Reports system reviewed and no additional complaints, except as documented and Reports as per HPI Respiratory Respiratory: Reports system reviewed and no additional complaints, except as documented and Reports as per HPI Gastrointestinal Gastrointestinal: Reports system reviewed and no additional complaints, except as documented and Reports as per HPI Musculoskeletal Musculoskeletal: Reports other (Right hand pain) Integumentary/Breasts Skin/Breast: Reports other (laceration) Neurologic Neurologic: Reports system reviewed and no additional complaints, except as documented Past Medical History Past Medical History CARDIAC: Negative Cardiac Disorders or Congestive Heart Failure RESPIRATORY: Negative Chronic Obstructive Pulmonary Disease (COPD) or Asthma GENITOURINARY: Negative Renal Disease ENDOCRINE: Negative Diabetes Mellitus Type 1 or Diabetes Mellitus Type 2 HEMATOLOGIC: Negative Sickle Cell Disease Social History SMOKING STATUS: Current every day smoker SUBSTANCE USE: marijuana, amphetamines and methamphetamine ED Exam General Limitations: Present no limitations General appearance: Present alert, in no apparent distress and other (Patient is awake alert oriented not in distress nontoxic looking) Head Head exam: Present atraumatic, normocephalic and normal inspection Eye Eye exam: Present normal appearance, PERRL and EOMI ENT ENT exam: Present normal exam, normal oropharynx and mucous membranes moist Neck Neck exam: Present normal inspection, full ROM and trachea midline Chest Chest inspection: Present normal inspection and symmetric chest wall rise Respiratory Respiratory exam: Present normal lung sounds bilaterally; Absent respiratory distress, wheezes, stridor, accessory muscle use or prolonged expiratory phase Cardiovascular Cardiovascular exam: Present regular rate, normal rhythm and normal heart sounds; Absent bradycardia, tachycardia, irregular rhythm, systolic murmur or diastolic murmur Abdominal Exam Abdominal exam: Present soft and normal bowel sounds; Absent distention, tenderness, guarding, rebound, rigidity, diminished bowel sounds or hyperactive bowel sounds Extremities Exam Extremities exam: Present normal inspection and full ROM Expanded Upper Extremity Exam Hand exam: Present normal inspection, full ROM and laceration (Patient sustained a very small superficial laceration distal second third fourth finger right hand no bleeding no open wound no foreign body no tendon or bone injury ROM intact neurovascular intact); Absent tenderness, swelling or abrasion Back Exam Back exam: Present normal inspection and full ROM Neurological Exam Neurological exam: Present alert, oriented X3, CN II-XII intact, normal gait and reflexes normal; Absent motor sensory deficit Psychiatric Psychiatric exam: Present normal affect and normal mood Skin Skin exam: Present warm, dry, intact, normal color and other (Superficial laceration second third fourth finger right hand) Course Quality Measures none Orders Category Date Time Status Wound Care NOW Care 12/28/24 00:16 Completed XR hand RT 2V Stat Exams 12/27/24 22:09 Completed cephALEXin [Keflex] Med 12/28/24 00:16 Discontinued 500 mg PO X1 ONE Vital Signs Vital signs: Vital Signs Temperature 98.2 F 12/27/24 22:14 Pulse Rate 89 12/27/24 22:14 Respiratory Rate 18 12/27/24 22:14 Blood Pressure 158/90 H 12/27/24 22:14 Pulse Oximetry (%) 97 12/27/24 22:14 Oxygen Delivery Method Room Air 12/27/24 22:14 Patient is afebrile not tachycardic not tachypneic BP stable not hypoxic oxygen saturation in room air Wound / Laceration MDM Narrative MDM Narrative:: The case of 59-year-old female with history of DVT on on Eliquis came in in the emergency room due to superficial laceration on the second third fourth finger distal third patient states that it was bleeding and apply a pressure dressing prior to arrival in the emergency room patient denies any other injury denies any numbness weakness or tingling sensation patient was cleaning the cooler of the electric fan when the finger hit by the fan and sustained the above injury patient tetanus shot is up-to-date physical examination patient is awake alert oriented not in distress not toxic looking patient sustained a very small superficial laceration on the second third fourth finger right hand no bleeding no foreign body no tendon or bone injury ROM intact pulses were full and equal as capillary refill less than 2 seconds no involvement of the nail sensory intact reflex normal x-ray no fracture at this point wound was cleaned with normal saline apply triple antibiotic and applied nonadherent dressing patient was advised to follow-up with PCP in 2 days for reevaluation patient tetanus shot is up-to-date patient was prescribed cephalexin for and mupirocin to prevent infection for any signs and symptoms of infection return to the ER is advised at the time of exam there is no need to repair laceration the wound is not bleeding and small superficial laceration Patient was discharged with comfortable condition walking with stable gait. Patient verbalized no further complains explained diagnosis and answered patient question. Patient is comfortable with the proposed management plan including the need to follow up with his/her primary care physician and any specialist if applicable Discussed patient for any urgent condition or worsening sx, He/She needed to go to emergency room immediately or call 911. Patient acknowledge the responsibility to follow up as instructed and to monitor her/his symptoms. For any persistence of the symptoms for more than 3-5 days return precaution advised. Discussed the result of the test and was given printed discharge instruction Patient data External records reviewed:: [facility] previous records Clinical information provided by:: patient Social determinants that could affect healthcare access:: none Patient has the following chronic illnesses:: None How is presenting disease/condition affected by chronic disease/condition?: no chronic disease Evaluation data The following diagnostics were reviewed and interpreted by me:: radiology exam(s) Lab and/or radiology exams considered but not ordered:: Reviewed Interpretation Summary: Reviewed Medications / Prescriptions Medications or Prescriptions considered but not ordered:: Given Medication administrations:: Medication Administration History Discontinued Medications Cephalexin HCl (Cephalexin 250 Mg Capsule) 500 mg PO X1 ONE Stop: 12/28/24 00:17 Last Admin: 12/28/24 00:29 Dose: 500 mg Documented By: KF Given Consultations Consultation(s) initiated? (list below): No Diagnosis Wound Differential Diagnosis: laceration, abrasion and avulsion of skin Most likely diagnosis given after review of the tests above:: Superficial laceration Admission Indicated Admission indicated?: not indicated Admission Request Was there a request for admission?: No Admission Attestation Admission request attestation: Not indicated Disposition Plan Disposition Plan: Discharge Discharge Attestation Discharge Attestation: The patient and all family members were given an opportunity to ask questions and understood the discharge instructions. Discharge instructions specifically effects, indications for sooner follow up or return to the emergency department, and the expected course of current diagnosis. Patient condition: Stable Discharge Plan Plan Patient Disposition: HOME (Self Care) Patient condition on transfer: Stable Prescriptions/Referrals Prescriptions/Med Rec: New cephalexin 500 mg capsule 500 mg PO TID 10 Days Qty: 30 0RF mupirocin 2 % ointment 1 applic topical TID Qty: 22 0RF ibuprofen 600 mg tablet 600 mg PO Q8H PRN (Reason: pain) Qty: 20 0RF No Action Hydrocodone/Acetaminophen * (NORCO 5/325 *) 1 TAB tablet 1 tab PO Q6H PRN (Reason: PAIN) Qty: 0 amoxicillin-pot clavulanate 875-125 mg tablet 1 tab PO Q12H Qty: 10 0RF Problem List Clinical Impression: Superficial laceration of finger Patient/Caregiver Discharge Instructions Education Materials: ED Laceration Small or ..., ED Wound Care Additional Instructions: Follow-up with your primary care physician in 2 days for reevaluation and wound check worsening symptoms or any emergent concerns such as redness swelling discharge from the wound pain fever chills call 911 or go to the nearest emergency room keep the wound clean and dry finish the course of antibiotic Print Language: Occitan Stand Alone Forms: Anjelica Award Info., Patient Portal Info Letter RISHABH/TEST ENG Supervising Physician PA/TEST ENG Supervising Physician: DR Mendoza
== END 2024-12-28 00:35 | disposition home or self-care (01) ==
LOC: SERX 12-28 00:32
PROVIDERS: Emergency Provider Emergency Medicine; PCP Family Medicine
DX: S61.210A Laceration without foreign body of right index finger without damage to nail, initial encounter (principal); S61.212A Laceration without foreign body of right middle finger without damage to nail, initial encounter; S61.214A Laceration without foreign body of right ring finger without damage to nail, initial encounter; W45.8XXA Other foreign body or object entering through skin, initial encounter
CPT/HCPCS: 73120; 99283; A9270

== ENCOUNTER 2025-02-22 10:02 | Emergency (ER) | payer MEDICAID, SELFPAY ==
[2025-02-22 10:15] VITALS: BP 122/83; PULSE 82; RESP 18; TEMP 36.8; O2SAT 98
--- NOTE | 2025-02-22 10:29 | PD.EDRME ---
Rapid Medical Screening Exam RME Arrival date/time: 02/22/25 10:02 59-year-old female with a history of DVT, and a pulmonary embolism with a thrombectomy, presents to the emergency room with a chief complaint of a 10 out of 10 headache x 4 days. Patient denies shortness of breath, chest pain. I have greeted and performed a focused initial assessment of this patient. A comprehensive ED assessment and evaluation of the patient, analysis of all test results, and completion of the medical decision making process will be conducted by additional ED providers. Chief Complaint: Headache Time Seen by Provider: 02/22/25 10:10 Vital signs: Vital Signs Temperature 98.3 F 02/22/25 10:15 Pulse Rate 82 02/22/25 10:15 Respiratory Rate 18 02/22/25 10:15 Blood Pressure 122/83 02/22/25 10:15 Pulse Oximetry (%) 98 02/22/25 10:15 Oxygen Delivery Method Room Air 02/22/25 10:15 Vital signs reviewed by provider: Yes
--- NOTE | 2025-02-22 11:05 | PD.EDADULT ---
ED General RME/HPI General Chief complaint: Headache Stated complaint: MASSIVE PRESSURE IN HEAD X 4 DAYS Time Seen by Provider: 02/22/25 10:10 Arrival date/time: 02/22/25 10:02 CC: Headache HPI bitemporal or headache with light sensitivity ongoing for the past 4 days no relief with Tylenol has a history of migraines but those are typically in the back of the head. Patient denies noise sensitivity has mild intermittent nausea but no active vomiting or diarrhea. Patient has significant history for DVTs and at 1 point had a thrombectomy for a PE. Patient is concerned she may have a clot in her brain , because of this headache is different . Patient is awake alert oriented nontoxic-appearing not in any acute distress engaged with direct eye contact. RME / HPI RME / HPI narrative: 02/22/25 10:02 59-year-old female with a history of DVT, and a pulmonary embolism with a thrombectomy, presents to the emergency room with a chief complaint of a 10 out of 10 headache x 4 days. Patient denies shortness of breath, chest pain. I have greeted and performed a focused initial assessment of this patient. A comprehensive ED assessment and evaluation of the patient, analysis of all test results, and completion of the medical decision making process will be conducted by additional ED providers. Related Data Home Medications ?Medication ?Instructions ?Recorded ?Confirmed Hydrocodone/Acetaminophen * (NORCO 1 tab PO Q6H PRN PAIN #0 tabs 06/07/14 5/325 *) Previous Rx's ?Medication ?Instructions ?Recorded amoxicillin 875 mg-potassium 1 tab PO Q12H #10 tabs 12/02/24 clavulanate 125 mg tablet ibuprofen 600 mg tablet 600 mg PO Q8H PRN pain #20 tabs 12/28/24 mupirocin 2 % topical ointment 1 applic topical TID #22 grams 12/28/24 Allergies Allergy/AdvReac Type Severity Reaction Status Date / Time No Known Allergies Allergy Verified 02/22/25 10:05 Review of Systems Review of Systems Narrative Review of Systems: GEN: No fever, no chills, no weight loss EYES: No discharge, no visual changes, no pain HEENT: No ear pain, no congestion, no sore throat PULM: No shortness of breath, no cough, no congestion CV: No chest pain, no dyspnea on exertion, no palpitations GI: No nausea, no vomiting, no diarrhea, no pain, no constipation : No frequency, no urgency, no dysuria MUSC/SKEL: No joint pain, no back pain SKIN: No rash PSYCH: No hallucinations, no depression HEME/LYMPH: No easy bleeding or bruising tendencies NEURO: No weakness, + headache Past Medical History Past Medical History CARDIAC: Negative Cardiac Disorders or Congestive Heart Failure RESPIRATORY: Negative Chronic Obstructive Pulmonary Disease (COPD) or Asthma GENITOURINARY: Negative Renal Disease ENDOCRINE: Negative Diabetes Mellitus Type 1 or Diabetes Mellitus Type 2 HEMATOLOGIC: Negative Sickle Cell Disease Social History SMOKING STATUS: Current every day smoker SUBSTANCE USE: marijuana, amphetamines and methamphetamine ED Exam Narrative Physical exam: [General: Obese not in cot no acute distress Head normocephalic HEENT: Within acceptable limits Neck is supple nontender Chest equal chest rise nontender to palpation Respiratory: Clear to auscultation no wheezes crackles or rubs CV: Rate rhythm is regular no murmurs rubs or clicks Abdomen is distended secondary to body habitus soft nontender no masses positive bowel sounds all 4 quadrants Back: No CVA tenderness no spinous process tenderness from cervical spine thoracic and lumbar spine Skin: Intact no petechiae rash induration ulceration or crepitus Extremities: Moving all extremity against resistance cap refill less than 2 seconds neurosensory intact. No lower extremity edema. Neuro: Awake alert oriented x3 Glascow coma 15 no focal deficits] Course Course Course Narrative: Reassessment of the patient at 1315 the patient is a significant improvement no longer has photophobia and headache is significantly improved per the patient. Will discharge the patient home with migraine Quality Measures none Orders Category Date Time Status Insert IV STAT Care 02/22/25 10:27 Active Acetaminophen Ivpb [Ofirmev Inj] Med 02/22/25 10:28 Discontinued 1,000 mg in 100 ml IV X1 DiphenhydrAMINE INJ [Benadryl Inj] Med 02/22/25 10:27 Discontinued 25 mg IVP X1 ONE Metoclopramide Inj [Reglan Inj] Med 02/22/25 10:27 Discontinued 10 mg IVP X1 ONE Vital Signs Vital signs: Vital Signs Temperature 98.3 F 02/22/25 10:15 Pulse Rate 82 02/22/25 10:15 Respiratory Rate 18 02/22/25 10:15 Blood Pressure 122/83 02/22/25 10:15 Pulse Oximetry (%) 98 02/22/25 10:15 Oxygen Delivery Method Room Air 02/22/25 10:15 Discharge Plan Plan Patient Disposition: HOME (Self Care) Patient condition on transfer: Stable Prescriptions/Referrals Prescriptions/Med Rec: No Action Hydrocodone/Acetaminophen * (NORCO 5/325 *) 1 TAB tablet 1 tab PO Q6H PRN (Reason: PAIN) Qty: 0 amoxicillin-pot clavulanate 875-125 mg tablet 1 tab PO Q12H Qty: 10 0RF mupirocin 2 % ointment 1 applic topical TID Qty: 22 0RF ibuprofen 600 mg tablet 600 mg PO Q8H PRN (Reason: pain) Qty: 20 0RF Referrals: Chao Crews MD [Primary Care Provider, Family Practice] - In 1 week Problem List Clinical Impression: Migraine Patient/Caregiver Discharge Instructions Education Materials: Headache Migraine Meds Lifestyle Additional Instructions: Follow-up with your primary care provider if symptoms worsen return to the emergency room for reevaluation. 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 EKG EKG not done Medication Administration(s) Medication Administration History Discontinued Medications Diphenhydramine HCl (Diphenhydramine Inj 50 Mg/Ml Vial) 25 mg IVP X1 ONE Stop: 02/22/25 10:28 Last Admin: 02/22/25 11:49 Dose: 25 mg Documented By: ED Acetaminophen (Ofirmev Inj) 1,000 mg in 100 mls @ 250 mls/hr IV X1 ONE Stop: 02/22/25 10:51 Last Admin: 02/22/25 11:53 Dose: 250 mls/hr Documented By: ED Metoclopramide HCl (Metoclopramide Inj 5 Mg/Ml Vial 2 Ml) 10 mg IVP X1 ONE; Protocol Stop: 02/22/25 10:28 Last Admin: 02/22/25 11:51 Dose: 10 mg Documented By: ED
--- NOTE | 2025-02-22 11:30 | PC.NURSE ---
Pt. here from home to room 17, pt. states her ROBERT is to her right and left temples, pt. states it started 4 days ago, pt. states it feels like some one is squeezing her temples. Pt. states she has a blood clot in her left leg. Pt. states she has had nausea but no vomiting. Pt. has history of blood clots. Pt. also had a 3 year old grandson that just drowned and pt. did CPR on grandson, pt. states his celebration of life is . Pt. laying in bed resting with the lights in the room off.
[2025-02-22] MEDS: METOCLOPRAMIDE INJ 5 MG/ML VIAL 2 ML 10 MG IVP (11:51)
[2025-02-22] MEDS: ACETAMINOPHEN IVPB 1,000 MG/100 ML VIAL 250 MG IV (11:53)
[2025-02-22 12:05] VITALS: BP 135/72; PULSE 66; RESP 17; TEMP 37; O2SAT 100
[2025-02-22 15:51] VITALS: BP 123/89; PULSE 66; RESP 18; TEMP 36.6; O2SAT 97
== END 2025-02-22 15:52 | disposition home or self-care (01) ==
PROVIDERS: Emergency Provider Emergency Medicine; PCP Family Medicine
DX: G43.909 Migraine, unspecified, not intractable, without status migrainosus (principal)
CPT/HCPCS: 96365; 96375; 99283; J0131; J1200; J2765